=== PATIENT | male | born 1965 | race African-American/Black ===

== ENCOUNTER 2017-12-04 19:41 | Emergency (ER) | payer SELFPAY ==
[2017-12-04] MEDS ORDERED: Clindamycin CAP* 150 MG PO ONE (22:53)
[2017-12-04] MEDS ORDERED: oxyCODONE/Acetamin 5/325 MG* TAB PO ONE (22:54)
--- NOTE | 2017-12-04 23:00 | ED ---
Lower Extremity - HPI Summary HPI Summary: This patient is a 52 year old M presenting to [facility] accompanied by another male with a chief complaint of redness/swelling to the left medial thigh for the last 36 hours. The patient rates the pain 7/10 in severity. Patient reports pain and tightness. Patient denies fever and recent travel. - History of Current Complaint Chief Complaint: EDExtremityLower Stated Complaint: RT LEG SWOLLEN Time Seen by Provider: 12/04/17 22:44 Hx Obtained From: Patient Mechanism Of Injury: Unknown Onset of Pain: Hours - 36 Onset/Duration: Hours Severity Initially: Moderate Severity Currently: Moderate Pain Intensity: 7 Pain Scale Used: 0-10 Numeric Timing: Constant Location: Is Discrete @ - LLE Associated Signs And Symptoms: Positive: Swelling, Redness. Negative: Fever Able to Bear Weight: Yes - Allergies/Home Medications Allergies/Adverse Reactions: Allergies Allergy/AdvReac Type Severity Reaction Status Date / Time No Known Allergies Allergy Verified 12/05/17 00:01 PMH/Surg Hx/FS Hx/Imm Hx Cardiovascular History: Reports: Hx Hypertension, Other Cardiovascular Problems/ Disorders - Sinus bradycardia Denies: Hx Rheumatic Fever Respiratory History: Denies: Hx Chronic Obstructive Pulmonary Disease (COPD) GI History: Denies: Hx Hiatal Hernia Sensory History: Reports: Hx Contacts or Glasses - Pt wears glasses Opthamlomology History: Reports: Hx Contacts or Glasses - Pt wears glasses Psychiatric History: Reports: Hx of Violent Episodes Against Others Denies: Hx Eating Disorder Infectious Disease History: No Infectious Disease History: Denies: Traveled Outside the [place] in Last 30 Days - Family History Known Family History: Positive: Hypertension, Diabetes - Social History Alcohol Use: Weekly Alcohol Amount: 3 to 4 drinks Substance Use Type: Reports: Marijuana Substance Use Comment - Amount & Last Used: Pt did have cocaine in his system though claims he doesn't consume it often Smoking Status (MU): Current Every Day Smoker Type: Cigarettes Have You Smoked in the Last Year: Yes Review of Systems Constitutional: Negative - recent travel Negative: Fever Positive: Other - LLE pain and redness Positive: Other - redness and tightness All Other Systems Reviewed And Are Negative: Yes Physical Exam - Summary Physical Exam Summary: VITAL SIGNS: Reviewed. GENERAL: Patient is a well-developed and nourished male who is lying comfortable in the stretcher. Patient is not in any acute respiratory distress. HEAD AND FACE: No signs of trauma. No ecchymosis, hematomas or skull depressions. No sinus tenderness. EYES: PERRLA, EOMI x 2, No injected conjunctiva, no nystagmus. EARS: Hearing grossly intact. Ear canals and tympanic membranes are within normal limits. MOUTH: Oropharynx within normal limits. NECK: Supple, trachea is midline, no adenopathy, no JVD, no carotid bruit, no c- spine tenderness, neck with full ROM. CHEST: Symmetric, no tenderness at palpation LUNGS: Clear to auscultation bilaterally. No wheezing or crackles. CVS: Regular rate and rhythm, S1 and S2 present, no murmurs or gallops appreciated. ABDOMEN: Soft, non-tender. No signs of distention. No rebound no guarding, and no masses palpated. Bowel sounds are normal. EXTREMITIES: FROM in all major joints, there is swelling/ redness/tenderness to the medial aspect of the left thigh NEURO: Alert and oriented x 3. No acute neurological deficits. Speech is normal and follows commands. SKIN: Dry and warm Triage Information Reviewed: Yes Vital Signs On Initial Exam: Initial Vitals Temp Pulse Resp BP Pulse Ox 97.9 F 94 16 159/104 97 12/04/17 19:49 12/04/17 19:49 12/04/17 19:49 12/04/17 19:49 12/04/17 19:49 Vital Signs Reviewed: Yes Diagnostics - Vital Signs Vital Signs Temp Pulse Resp BP Pulse Ox 12/04/17 22:09 98.1 F 68 16 147/101 12/04/17 19:49 97.9 F 94 16 159/104 97 - Laboratory Lab Statement: Any lab studies that have been ordered have been reviewed, and results considered in the medical decision making process. - Ultrasound No standard instances Ultrasound Interpretation Completed By: Radiologist - US LE reveals, per radiologist, Normal right lower extremity duplex venous ultrasound ED physician has reviewed this radiology report. Lower Extremity Course/Dx - Course Assessment/Plan: This patient is a 52 year old M presenting to [facility] accompanied by another male with a chief complaint of redness/swelling to the left medial thigh for the last 36 hours. The patient rates the pain 7/10 in severity. Patient reports pain and tightness. Patient denies fever and recent travel. US LE reveals, per radiologist, Normal right lower extremity duplex venous ultrasound. In the ED course the patient was given clindamycin and oxycodone. Patient will be discharged with prescription for clindamycin and follow up from PCP. Pt was advised to return if it gets worse. The patient is agreeable with this plan. - Diagnoses Provider Diagnoses: Cellulitis Discharge - Sign-Out/Discharge Documenting (check all that apply): Patient Departure - Discharge Plan Condition: Stable Disposition: HOME Patient Education Materials: Cellulitis (ED) Referrals: [facility] [Outside] - 2 Days Additional Instructions: RETURN TO THE EMERGENCY DEPARTMENT FOR CHANGING OR WORSENING SYMPTOMS. FOLLOW UP WITH PCP IN 1-2 DAYS. If you do not have a primary care provider I have included the number of the physician referral center, the will set you up with one that takes your insurance and is near. - Attestation Statements Document Initiated by Scribe: Yes Documenting Scribe: Oh Umanzor Provider For Whom Milka is Documenting (Include Credential): Sendy Irvin MD Scribe Attestation: IOh , scribed for Sendy Irvin MD on 12/05/17 at 0037.
--- NOTE | 2017-12-05 00:23 | RAD ---
EXAM: US Duplex Right Lower Extremity Veins CLINICAL HISTORY: 52 years old, male; Pain and signs and symptoms; Swelling of limb; Lower extremity, right; Leg, lower; Additional info: Dvt TECHNIQUE: Real-time duplex ultrasound scan of the right lower extremity veins integrating B-mode two-dimensional vascular structure, Doppler spectral analysis, color flow Doppler imaging and compression. COMPARISON: No relevant prior studies available. FINDINGS: Deep veins: Unremarkable. No DVT in the visualized common femoral, femoral, proximal deep femoral or popliteal veins. The veins demonstrate normal color flow, are normally compressible, with normal phasic flow and/or augmentation response. Superficial veins: Unremarkable. No thrombus in the visualized great saphenous vein. Soft tissues: No acute findings. No popliteal cyst. IMPRESSION: Normal right lower extremity duplex venous ultrasound.
[2017-12-05 00:28] VITALS: BP 157/100
== END 2017-12-05 00:51 | disposition home or self-care (01) ==
LOC: ED 19:41
DX: L03.116 Cellulitis of left lower limb (principal); I10 Essential (primary) hypertension; F17.210 Nicotine dependence, cigarettes, uncomplicated
CPT/HCPCS: 99283; A9270-GY

== ENCOUNTER 2018-04-02 23:33 | Emergency (ER) | payer SELFPAY ==
[2018-04-02] MEDS ORDERED: Nicotine Inhaler* 10 MG AMP INH PRN (23:54)
[2018-04-03 00:10] LABS: ABS Basophils 0.1 10^3/ul (0-0.2); ABS Eosinophils 0.1 10^3/ul (0-0.6); ABS Lymphocytes 3.1 10^3/ul (1.0-4.8); ABS Monocytes 0.7 10^3/ul (0-0.8); ABS Neutrophils 2.3 10^3/ul (1.5-7.7); ABS Nucleated RBC 0 10^3/ul; Eosinophil % 1.3 %; Hematocrit 45 % (42-52); Hemoglobin 15.2 g/dl (14.0-18.0); Lymphocyte % 49.1 %; Mean Corpuscular HGB Conc 34 g/dl (31-36); Mean Corpuscular Hemoglobin 31 pg (27-31); Mean Corpuscular Volume 92 fL (80-94); Mean Platelet Volume 7.1 fL (7.4-10.4); Nucleated Red Blood Cells % 0.1; Platelet Count 289 10^3/ul (150-450); Red Blood Count 4.91 10^6/ul (4.00-5.40); Red Cell Distribution Width 14 % (10.5-15); White Blood Count 6.4 10^3/ul (3.5-10.8)
[2018-04-03 00:12] LABS: Urine Appearance Clear; Urine Bilirubin Negative (Negative); Urine Blood Negative (Negative); Urine Color Straw; Urine Glucose Negative (Negative); Urine Ketones Negative (Negative); Urine Nitrite Negative (Negative); Urine Protein Negative (Negative); Urine Specific Gravity 1.002 (1.010-1.030); Urine Urobilinogen Negative (Negative)
[2018-04-03] MEDS ORDERED: Haloperidol INJ IV/IM* 5 MG/ML AMP IM ONE (00:22)
[2018-04-03] MEDS ORDERED: LORazepam INJ* 2 MG/ML 1 ML VIAL IM ONE (00:22)
[2018-04-03] MEDS ORDERED: LORazepam INJ* 2 MG/ML 1 ML VIAL ONE (00:24)
[2018-04-03] MEDS ORDERED: Haloperidol INJ IV/IM* 5 MG/ML AMP ONE (00:24)
[2018-04-03 00:32] LABS: ALT 68 U/L (7-52); AST 40 U/L (13-39); Albumin 4.1 g/dL (3.2-5.2); Albumin/Globulin Ratio 1.2 (1-3); Alkaline Phosphatase 60 U/L (34-104); Anion Gap 10 mmol/L (2-11); BUN/Creatinine Ratio 10.5 (8-20); Blood Urea Nitrogen 13 mg/dL (6-24); CO2 Carbon Dioxide 26 mmol/L (22-32); Chloride 105 mmol/L (101-111); EGFR Non-African American 61.5 (>60); Globulin 3.3 g/dL (2-4); Glucose 102 mg/dL (70-100); Potassium 3.5 mmol/L (3.5-5.0); Sodium 141 mmol/L (135-145); Total Protein 7.4 g/dL (6.4-8.9)
[2018-04-03 00:44] LABS: Acetaminophen < 15 mcg/mL; Alcohol 215 mg/dL (<10); Salicylate < 2.50 mg/dL (<30)
[2018-04-03 00:53] LABS: Barbiturates Urine Screen None Detected (None Detect); Benzodiazepine Urine Screen None Detected (None Detect); Urine Cannabinoids Screen Presumptive Positive (None Detect)
[2018-04-03 00:59] LABS: TSH (Thyroid Stimulating Horm) 2.32 mcIU/mL (0.34-5.60)
[2018-04-03] MEDS ORDERED: Mouth Piece, Nicotine* 1 EACH CARTRIDGE INH ONE (01:00)
--- NOTE | 2018-04-03 01:01 | ED ---
Medical Screening - HPI Summary HPI Summary: Complains of homicidal intent. Chronic EtOH daily for year and a half. States he feels alone here in [place], drinks daily, has no one to talk to and is angry at being judged. States he has a couple people he wants to hurt. Also admits to smoking marijuana and doing cocaine. States medical history as HTN, but has not taken meds for 2 years. Also complains of recent flu but states symptoms have resolved other than a runny nose. Denies fever, cough, sore throat, CP, SOB, N/V/D, abdominal pain, change in urine, change in BM, hallucinations, CASEY. - History of Current Complaint Chief Complaint: EDMentalHealth Stated Complaint: 941 Time Seen by Provider: 04/02/18 23:53 Onset/Duration: Started Days Ago Severity: moderate PMH/Surg Hx/FS Hx/Imm Hx Endocrine/Hematology History: Denies: Hx Anticoagulant Therapy Cardiovascular History: Reports: Hx Hypertension, Other Cardiovascular Problems/ Disorders - Sinus bradycardia Denies: Hx Rheumatic Fever Respiratory History: Denies: Hx Chronic Obstructive Pulmonary Disease (COPD) GI History: Denies: Hx Hiatal Hernia History: Denies: Hx Dialysis Sensory History: Reports: Hx Contacts or Glasses - Pt wears glasses Opthamlomology History: Reports: Hx Contacts or Glasses - Pt wears glasses Neurological History: Denies: Hx Dementia Psychiatric History: Reports: Hx of Violent Episodes Against Others Denies: Hx Eating Disorder Infectious Disease History: No Infectious Disease History: Denies: Traveled Outside the [place] in Last 30 Days - Family History Known Family History: Positive: Hypertension, Diabetes - Social History Alcohol Use: Weekly Alcohol Amount: 3 to 4 drinks Substance Use Type: Reports: Marijuana Substance Use Comment - Amount & Last Used: Pt did have cocaine in his system though claims he doesn't consume it often Smoking Status (MU): Current Every Day Smoker Type: Cigarettes Have You Smoked in the Last Year: Yes Review of Systems Constitutional: Negative Eyes: Negative Positive: Nasal Discharge Cardiovascular: Negative Respiratory: Negative Gastrointestinal: Negative Genitourinary: Negative Musculoskeletal: Negative Skin: Negative Neurological: Negative Psychological: Normal All Other Systems Reviewed And Are Negative: Yes Physical Exam - Summary Physical Exam Summary: Physical exam unremarkable. No tremors, diaphoresis, N/V noted. Patient coherent and appropriate in behavior and speech. No indication of hallucinations. Triage Information Reviewed: Yes Vital Signs On Initial Exam: Initial Vitals Temp Pulse Resp BP Pulse Ox 99.2 F 91 18 187/130 98 04/02/18 23:42 04/02/18 23:42 04/02/18 23:42 04/02/18 23:42 04/02/18 23:42 Vital Signs Reviewed: Yes Appearance: Positive: Well-Appearing Skin: Positive: Warm Head/Face: Positive: Normal Head/Face Inspection Eyes: Positive: Normal Neck: Positive: Supple Respiratory/Lung Sounds: Positive: Clear to Auscultation Cardiovascular: Positive: Normal Abdomen Description: Positive: Nontender Musculoskeletal: Positive: Normal Neurological: Positive: Normal Psychiatric: Positive: Other - Angry AVPU Assessment: Alert - [place] Coma Scale Best Eye Response: 4 - Spontaneous Best Motor Response: 6 - Obeys Commands Best Verbal Response: 5 - Oriented Coma Scale Total: 15 Diagnostics - Vital Signs Vital Signs Temp Pulse Resp BP Pulse Ox 04/02/18 23:42 99.2 F 91 18 187/130 98 - Laboratory Lab Results: Lab Results 04/03/18 04/03/18 04/03/18 Range/Units 00:01 00:01 00:04 WBC 6.4 (3.5-10.8) 10^3/ul RBC 4.91 (4.00-5.40) 10^6/ul Hgb 15.2 (14.0-18.0) g/dl Hct 45 (42-52) % MCV 92 (80-94) fL MCH 31 (27-31) pg MCHC 34 (31-36) g/dl RDW 14 (10.5-15) % Plt Count 289 (150-450) 10^3/ul MPV 7.1 L (7.4-10.4) fL Neut % (Auto) 36.7 % Lymph % (Auto) 49.1 % Porter % (Auto) 11.7 % Eos % (Auto) 1.3 % Baso % (Auto) 1.2 % Absolute Neuts (auto) 2.3 (1.5-7.7) 10^3/ul Absolute Lymphs (auto) 3.1 (1.0-4.8) 10^3/ul Absolute Monos (auto) 0.7 (0-0.8) 10^3/ul Absolute Eos (auto) 0.1 (0-0.6) 10^3/ul Absolute Basos (auto) 0.1 (0-0.2) 10^3/ul Absolute Nucleated RBC 0 10^3/ul Nucleated RBC % 0.1 Sodium 141 (135-145) mmol/L Potassium 3.5 (3.5-5.0) mmol/L Chloride 105 (101-111) mmol/L Carbon Dioxide 26 (22-32) mmol/L Anion Gap 10 (2-11) mmol/L BUN 13 (6-24) mg/dL Creatinine 1.24 H (0.67-1.17) mg/dL Est GFR ( Amer) 74.4 (>60) Est GFR (Non-Af Amer) 61.5 (>60) BUN/Creatinine Ratio 10.5 (8-20) Glucose 102 H (70-100) mg/dL Calcium 9.0 (8.6-10.3) mg/dL Total Bilirubin 0.40 (0.2-1.0) mg/dL AST 40 H (13-39) U/L ALT 68 H (7-52) U/L Alkaline Phosphatase 60 (34-104) U/L Total Protein 7.4 (6.4-8.9) g/dL Albumin 4.1 (3.2-5.2) g/dL Globulin 3.3 (2-4) g/dL Albumin/Globulin Ratio 1.2 (1-3) TSH Pending Urine Color Straw Urine Appearance Clear Urine pH 6.0 (5-9) Ur Specific [place] 1.002 L (1.010-1.030) Urine Protein Negative (Negative) Urine Ketones Negative (Negative) Urine Blood Negative (Negative) Urine Nitrate Negative (Negative) Urine Bilirubin Negative (Negative) Urine Urobilinogen Negative (Negative) Ur Leukocyte Esterase Negative (Negative) Urine Glucose Negative (Negative) Salicylates < 2.50 (<30) mg/dL Acetaminophen < 15 mcg/mL Serum Alcohol 215 H (<10) mg/dL Result Diagrams: 04/03/18 00:01 04/03/18 00:04 Lab Statement: Any lab studies that have been ordered have been reviewed, and results considered in the medical decision making process. Course/Dx - Course Course Of Treatment: Complains of homicidal intent. Chronic EtOH daily for year and a half. States he feels alone here in [place], drinks daily, has no one to talk to and is angry at being judged. States he has a couple people he wants to hurt. Also admits to smoking marijuana and doing cocaine. States medical history as HTN, but has not taken meds for 2 years. Also complains of recent flu but states symptoms have resolved other than a runny nose. Denies fever, cough, sore throat, CP, SOB, N/V/D, abdominal pain, change in urine, change in BM, hallucinations, CASEY. Physical exam:Physical exam unremarkable. No tremors, diaphoresis, N/V noted. Patient coherent and appropriate in behavior and speech. No indication of hallucinations. Vital signs within normal limits. Creatinine 1.4. EtOH 216. Labs otherwise unremarkable. Mental health evaluation pending normal alcohol level. Patient will be signed out to Dr. Irvin - Diagnoses Provider Diagnoses: ETOH abuse, Homicidal ideation Discharge - Sign-Out/Discharge Documenting (check all that apply): Sign-Out Patient Signing out patient TO: Sendy Irvin - Discharge Plan Condition: Good Referrals: No Primary Care Phys,NOPCP [Primary Care Provider] - - Billing Disposition and Condition Condition: GOOD
--- NOTE | 2018-04-03 03:42 | ED ---
Progress - Progress Note Progress Note: Patient is received as a sign-out from NANCY Holman pending sobriety of patient for MHE. 0551 - Patient is agitated, wrapping blankets and clothing around his neck, pacing around the room. He was sedated. Re-Evaluation - Re-Evaluation First Eval Re-Evaluation Time: 05:51 Comment: 0551 - Patient is agitated, wrapping blankets and clothing around his neck, pacing around the room. He was sedated. Second Eval Re-Evaluation Time: 06:09 Comment: Patient continues to be agitated and is pulling/attempting to damage objects in the room. Ketamine will be administered. Course/Dx - Course Course Of Treatment: Patient is received as a sign-out from NANCY Holman pending sobriety of patient for MHE. 0551 - Patient is agitated, wrapping blankets and clothing around his neck, pacing around the room. He was sedated. 0609 - Patient continues to be agitated and is pulling/attempting to damage objects in the room. Ketamine will be administered. Patient is signed out at 0700 04/03/[address] Cortez pending MHE. - Diagnoses Provider Diagnoses: ETOH abuse, Homicidal ideation Discharge - Sign-Out/Discharge Documenting (check all that apply): Sign-Out Patient Signing out patient TO: Vj Cortez Receiving patient FROM: Cecilia Irvin - Discharge Plan Condition: Good Referrals: No Primary Care Phys,NOPCP [Primary Care Provider] - - Attestation Statements Document Initiated by Scribe: Yes Documenting Scribe: LUIZ CORTES Provider For Whom Scribbhargavi is Documenting (Include Credential): CECILIA IRVIN MD Scribe Attestation: LUIZ Bolden , scribed for CECILIA IRVIN MD on 04/03/18 at 0659. Status of Scribe Document: Ready
[2018-04-03] MEDS ORDERED: hydrOXYzine IM* 50 MG/ML VIAL IM ONE (05:52)
[2018-04-03] MEDS ORDERED: hydrOXYzine IM* 50 MG/ML VIAL ONE (05:54)
[2018-04-03] MEDS ORDERED: KETAMINE HCL* 50 MG/ML 10 ML VIAL IM ONE (06:10)
[2018-04-03] MEDS ORDERED: KETAMINE HCL* 50 MG/ML 10 ML VIAL ONE (06:11)
[2018-04-03] MEDS ORDERED: hydrALAZINE IV* 20 MG/ML VIAL IV SLOW PU ONE (07:26)
[2018-04-03] MEDS ORDERED: Nitroglycerin 2% OINT* 1 GM PAK TOPICAL ONE (07:26)
--- NOTE | 2018-04-03 07:26 | ED ---
Progress - Progress Note Progress Note: This pt was signed out by Dr. Irvin at shift change, pending disposition, awaiting mental health evaluation. Re-Evaluation - Re-Evaluation First Eval Re-Evaluation Time: 07:50 Change: Unchanged Comment: Pt is resting comfortable. Pupils are pinpoint. Suspect his hypertension to be ketamine adverse effect. Will continue to monitor vitals. If it continues to trend up we will administer antihypertensives. Course/Dx - Diagnoses Provider Diagnoses: ETOH abuse, Homicidal ideation Discharge - Sign-Out/Discharge Documenting (check all that apply): Receiving Sign-Out Receiving patient FROM: Sendy Irvin - Discharge Plan Referrals: [facility] [Outside] [facility] [Outside] - Attestation Statements Document Initiated by Hilariaibe: Yes Documenting Scribe: Tea Wang Provider For Whom Milka is Documenting (Include Credential): Vj Cortez MD Scribe Attestation: Tea Bolden, scribed for Vj Cortez MD on 04/03/18 at 1211. Scribe Documentation Reviewed: Yes Provider Attestation: The documentation as recorded by the hilariaibTea burk accurately reflects the service I personally performed and the decisions made by me, Vj Cortez MD Status of Scribe Document: Viewed
[2018-04-03] MEDS ORDERED: Lisinopril TAB* 5 MG PO ONE (07:53)
[2018-04-03] MEDS ORDERED: amLODIPine TAB* 5 MG PO ONE (07:53)
[2018-04-03] MEDS ORDERED: Hydrochlorothiazide TAB* 25 MG PO ONE (07:53)
[2018-04-03 14:58] VITALS: BP 175/108
== END 2018-04-03 15:15 | disposition home or self-care (01) ==
LOC: ED 23:33
DX: F10.10 Alcohol abuse, uncomplicated (principal); I10 Essential (primary) hypertension; F17.210 Nicotine dependence, cigarettes, uncomplicated; R45.850 Homicidal ideations
CPT/HCPCS: 36415; 80053; 80307; 80320; 80329; 81003; 84443; 85025; 86703; 96372; 96374; 99285; A9270-GY; G0480; J1630; J2060; J3410